=== PATIENT | female | born 1965 | race Native Hawaiian/Other Pacific Islander ===

== ENCOUNTER 2020-02-15 18:00 | Outpatient (CLI) | payer OTHER ==
[2020-02-15 20:07] LABS: POTASSIUM 5.6 mmol/L (3.6-5.2)
[2020-02-15 20:44] LABS: PLATELET COUNT 366 K/uL (152-353)
== END 2020-02-15 21:32 | disposition home or self-care (01) ==
LOC: LAB 18:00
PROVIDERS: ATTEND Nurse Practitioner Family
DX: Z00.00 Encounter for general adult medical examination without abnormal findings (principal); Z79.899 Other long term (current) drug therapy; E88.81 Metabolic syndrome and other insulin resistance; F41.1 Generalized anxiety disorder; F32.9 Major depressive disorder, single episode, unspecified; I10 Essential (primary) hypertension; G47.00 Insomnia, unspecified; G25.81 Restless legs syndrome; E78.5 Hyperlipidemia, unspecified; E11.9 Type 2 diabetes mellitus without complications; R51.9 Headache, unspecified
CPT/HCPCS: 80053; 80061; 82306; 82607; 83036; 84439; 84443; 85027

== ENCOUNTER 2020-02-22 17:44 | Outpatient (CLI) | payer OTHER | END 2020-02-22 19:17 | disposition home or self-care (01) | LOC: LAB 17:44 | PROVIDERS: ATTEND Nurse Practitioner Family | DX: E87.5 Hyperkalemia (principal) | CPT/HCPCS: 84132 ==